=== PATIENT | male | born 1985 | race Caucasian/White ===

== ENCOUNTER 2023-02-26 08:28 | Emergency (ER) | payer BC, SELFPAY ==
[2023-02-26 08:47] VITALS: BP 145/77; PULSE 96; RESP 14; TEMP 37.6; O2SAT 96
--- NOTE | 2023-02-26 08:51 | ED.URI ---
HPI - URI/Sore Throat General Chief Complaint: Upper Respiratory Infection Stated Complaint: Sore Throat Source: patient and RN notes reviewed History of Present Illness HPI Narrative: 37-year-old male presents to urgent care with complaints of a sore throat for the last 12 hours. Patient reports painful swallowing. Patient reports a low-grade fever at home. Patient has been taking ibuprofen/ Tylenol for his symptoms. Denies any vomiting, nausea, ear pain, headache, chest pain, or shortness of breath. Denies any recent exposure to strep throat that he knows of. Some parts of this dictation were generated by voice recognition software and may contain typographical and/or grammatical inaccuracies. Related Data Home Medications Medication Instructions Recorded Confirmed amlodipine 10 mg tablet 10 mg PO DAILY 02/26/23 02/26/23 hydralazine 25 mg tablet 25 mg PO DAILY 02/26/23 02/26/23 losartan 100 mg tablet 100 mg PO DAILY 02/26/23 02/26/23 spironolactone 25 mg tablet 25 mg PO DAILY 02/26/23 02/26/23 Allergies Allergy/AdvReac Type Severity Reaction Status Date / Time No Known Allergies Allergy Verified 02/26/23 08:36 Review of Systems Review of Systems: Pertinent positives and pertinent negatives per HPI. PMFSH Comments At the time of my signature, I reviewed and agree with the nursing past medical, surgical, social, and family history. There is no relevant family history pertinent to the patient complaint. Exam Narrative: GENERAL: This is a well-nourished, well-developed patient, in no apparent distress. HEAD: normocephalic, atraumatic. EYES: Sclera clear/white. Vision is grossly intact. EARS: External ears normal, auditory canals clear and without drainage. Hearing grossly intact. NOSE: External nose normal with no obvious nasal discharge, nares without redness, no rhinorrhea. THROAT: Mucous membranes moist, posterior pharynx erythemic. Tonsils 1+ bilaterally with exudate noted. NECK: Neck supple, non-tender without lymphadenopathy, masses or thyromegaly. CARDIOVASCULAR: Regular rate and rhythm without murmurs, gallops, or rubs. RESPIRATORY: Clear to auscultation. Breath sounds equal bilaterally. No wheezes, rales, or rhonchi. GASTROINTESTINAL: Abdomen soft, non-tender, nondistended. Bowel sounds are active. No hepato-splenomegaly, or palpable masses. No guarding. SKIN: warm, intact with no suspicious lesions or rash, good texture and turgor. NEURO: awake, alert, and oriented to person, place and time. There were no obvious focal neurologic abnormalities. Course Course Level of Care: Express Care Visit Vital Signs Vital signs: Vital Signs Temperature 99.7 F H 02/26/23 08:47 Pulse Rate 96 02/26/23 08:47 Respiratory Rate 14 02/26/23 08:47 Blood Pressure 145/77 H 02/26/23 08:47 Pulse Oximetry 96 02/26/23 08:47 Oxygen Delivery Room Air 02/26/23 08:47 Temperature 99.7 F H 02/26/23 08:47 Pulse Rate 96 02/26/23 08:47 Respiratory Rate 14 02/26/23 08:47 Blood Pressure 145/77 H 02/26/23 08:47 Pulse Oximetry 96 02/26/23 08:47 Oxygen Delivery Room Air 02/26/23 08:47 reviewed MDM - URI/Sore Throat MDM Narrative Medical decision making narrative: Rapid strep is negative in the office; however we will send to the lab for confirmation; there is a small percentage chance that it can come back positive; if it is, we will call you in 2-3days; and your prescription will be call in to your pharmacy. However, there is NO indication for antibiotic at this time. -Increase your fluids and Vitamin C. -Oral rinses such as: Salt water gargles and/or may use topical anesthetic (eg. Chloraseptic spray) or lozenges to relieve dryness or throat pain. -Take tylenol and ibuprofen as needed for pain and fever as directed. -Frequent hand washing or hand bundle shaker is one of the best ways to prevent spread of infection. -Follow up with primary care provider in 2-3 days if condition is not impro
== END 2023-02-26 09:08 | disposition home or self-care (01) ==
PROVIDERS: Emergency Provider Nurse Practitioner Family; PCP Family Medicine
DX: J02.9 Acute pharyngitis, unspecified (principal)
CPT/HCPCS: 87081; 87880; 99213; G0463